=== PATIENT | female | born 1985 ===

== ENCOUNTER 2018-12-19 08:28 | Emergency (ER) | payer OTHER ==
[~2018-12-19] VITALS: Ht 157.5 cm; Wt 54.5 kg
[2018-12-19 08:30] VITALS: BP 141/47
[2018-12-19] MEDS ORDERED: LORazepam 2 mg/ml vial IV ONE (08:35)
== END 2018-12-19 08:41 ==
LOC: ER 08:29
DX: R45.1 Restlessness and agitation (principal); F15.10 Other stimulant abuse, uncomplicated
CPT/HCPCS: 96374; 99284